=== PATIENT | female | born 1965 | race Caucasian/White ===

== ENCOUNTER 2016-10-17 06:00 | Day surgery (SDC) | payer BC ==
[~2016-10-17] VITALS: Ht 172.7 cm; Wt 120.0 kg
[~2016-10-17 06:00] MED LIST: ACET500T33 PO; ASCO1TAB2 PO; BUPR300T4 PO; CELE200C PO; HYDR-965 PO; MULT1TAB52 PO; SERT50TA PO; SIMV20TA3 PO; VALS1TAB8 PO; WARF1TAB PO; WARF2TAB7 PO; WARF5TAB7 PO; WARF6TAB PO
[2016-10-17] MEDS ORDERED: CEFAZOLIN 2GM PREMIX 50 ML IV ONE (06:46)
[2016-10-17] MEDS ORDERED: ONDANSETRON PF 4 MG/2 ML VIAL. IV PRN (07:00)
[2016-10-17] MEDS ORDERED: HYDROMORPHONE 2 MG/ML VIAL. IV PRN (07:00)
[2016-10-17] MEDS ORDERED: IV RINGERS,LACTATED 1000ML 1,000 ML IV SCH (07:00)
[2016-10-17] MEDS ORDERED: MORPHINE SULFATE 2 MG/ML DISP.SYRIN. IV PRN (07:00)
[2016-10-17] MEDS ORDERED: FENTANYL PF 100 MCG/2 ML VIAL. IV PRN ×2 (07:00)
[2016-10-17] MEDS ORDERED: LIDOCAINE 1% 1 ML SYRINGE. ID PRN (07:00)
[2016-10-17] MEDS ORDERED: PROCHLORPERAZINE 10 MG/2 ML VIAL. IV PRN (07:00)
[2016-10-17] MEDS ORDERED: ONDANSETRON PF 4 MG/2 ML VIAL. ONE (07:01)
[2016-10-17] MEDS ORDERED: DEXAMETHASONE SOD PHOS 20 MG/5 ML VIAL. ONE (07:01)
[2016-10-17] MEDS ORDERED: MIDAZOLAM HCL 2 MG/2 ML VIAL. ONE (07:01)
[2016-10-17] MEDS ORDERED: PROPOFOL 20 ML IV ONE (07:01)
[2016-10-17] MEDS ORDERED: LIDOCAINE 2% 100 MG/5 ML DISP.SYRIN. ONE (07:01)
[2016-10-17] MEDS ORDERED: FENTANYL PF 250 MCG/5 ML VIAL. ONE (07:01)
[2016-10-17] MEDS ORDERED: ROPIVacaine 0.2% PF 10 ML VIAL. ONE (07:09)
[2016-10-17] MEDS ORDERED: ACETAMINOPHEN INTRAVENOUS 100 ML IV ONE (07:26)
[2016-10-17] MEDS ORDERED: CEFAZOLIN 2GM PREMIX 50 ML IV PRN (08:00)
[2016-10-17] MEDS ORDERED: GLYCOPYRROLATE 1 MG/5 ML VIAL. ONE (08:01)
--- NOTE | 2016-10-17 08:53 | DISCH ---
DISCHARGE INSTRUCTIONS Condition on Discharge Condition on Discharge: Stable Activity After Discharge Activity Instructions for Disc: Activity as tolerated Lifting Instructions after Dis: Add. restrict see below (recommend off work until followup, needs leg elevated with sitting duty on return) Exercise Instruction after Dis: Exercise per therapy Weight Bearing Status after Di: As tolerated Diet after Discharge Diet after Discharge: Regular Wound Incision Care Wound/Incision Care: Ice to area for comfort, Keep wound elevated Other wound/incision instructi: remove dressing 2 days may then shower Community/Resources/Services Services at Discharge: PT EVALUATE & TREAT Contacting the DRDiann after DC Call your doctor for: Concerns you may have Follow-Up Follow up with: Amilcar 7-10 days KATERINE PAULSON MD Oct 17, 2016 08:53
[2016-10-17] MEDS ORDERED: HYDR-965 PO (08:54)
--- NOTE | 2016-10-17 08:56 | PDOC ---
BRIEF OPERATIVE NOTE Date: Oct 17, 2016 Pre-Op Diagnosis lateral meniscus tear Post-Op Diagnosis same plus chondromalacia, flap tear Procedure Performed left knee scope, partial lateral menisectomy, chondroplasty Surgeon Amilcar Anesthesia Type: General Blood Loss <5cc Findings above Complications none KATERINE PAULSON MD Oct 17, 2016 08:56
[2016-10-17] MEDS ORDERED: HYDROCODONE/APAP 7.5/325MG TABLET. PO PRN (09:15)
[2016-10-17 10:00] VITALS: BP 138/82
--- NOTE | 2016-10-17 10:43 | OP ---
DATE OF SURGERY: 10/17/2016 PREOPERATIVE DIAGNOSIS: Lateral meniscus tear. POSTOPERATIVE DIAGNOSIS: Lateral meniscus tear plus chondral flap tear, medial femoral condyle and grade 3 chondromalacia patella as well as significant calcified tissue just anterior to the ACL insertion. PROCEDURE: Left knee arthroscopy, partial medial meniscectomy, chondroplasty of the medial femoral condyle and patella and debridement of soft tissue intercondylar notch. SURGEON: Willie Fitzgerald MD. ANESTHESIA: General. ESTIMATED BLOOD LOSS: Less than 5 mL. TOURNIQUET TIME: Approximately 25 minutes at 300 mmHg. COMPLICATIONS: None. OPERATIVE INDICATIONS: The patient is a 51-year-old female with pain, catching, mechanical symptoms very limiting to her activities of daily living and suspicion of a lateral meniscus tear based on her ongoing symptoms. I had gone over with her the risks, benefits, postoperative course of the procedure including the inability to undo any degenerative changes present in the knee that we are going in for mechanical issues only and pain would improve to the extent that those are responsible. All her questions were answered regarding the procedure and she verbalized understanding of the possibility of infection, nerve or blood vessel damage, medical or other anesthetic complications, continued pain among others. DESCRIPTION OF PROCEDURE: The patient was identified, procedure verified, patient placed in the supine position on the operating table. After adequate amounts of general endotracheal anesthesia were administered, the left lower extremity was placed with a thigh tourniquet, prepped and draped in standard sterile fashion and placed in the arthroscopic leg cintron. After timeout was performed, the patient and procedure was identified and verified. The left lower extremity was exsanguinated by Esmarch bandage. Tourniquet inflated to 300 mmHg and a lateral portal was established, medial portal established using spinal needle localization and the knee joint was systematically examined. She was noted to have a chondral flap tear of the medial femoral condyle weightbearing surface, which was debrided back to stable tissue, it was not full thickness in nature. Medial meniscus was probed and found to be intact. ACL was probed and found to be intact. There was a significant collection of tissue that was partially calcified just anterior to the ACL potentially impinging on the intercondylar notch, which was trimmed back to stable tissue and the calcified area removed. ACL, tibial insertion remained intact. Lateral meniscus was noted to have a large tear basically involving the entire substance of the lateral meniscus. There was a small amount of wispy tissue present posteriorly, but very loose in front of the popliteus tendon and that area was debrided as well. Essentially, she had a subtotal partial meniscectomy performed excising the entire posterior horn. The anterior horn of the body was radiused appropriately into the existing intact anterior horn which was preserved, she had full thickness cartilage defect on the weightbearing area of the tibial plateau laterally. No loose bodies were noted. The grade 3 chondromalacia on the undersurface of the patella was debrided back to stable tissue using the arthroscopic shaver as well. No patellofemoral tilt or instability was noted. Click toward the knee again revealed no loose bodies and cartilage fragments were all removed. Knee joint was drained of arthroscopic fluid. Portals closed with nylon suture. She was injected with 20 mL of 0.2% ropivacaine in the fat pad area of portal sites and joint. Sterile dressings were applied. Toes were noted to be warm and pink following deflation of the tourniquet after a total tourniquet time of approximately 25 minutes. She was extubated and transferred to postop holding in stable condition having tolerated the procedure well. WILLIE FITZGERALD MD DR: CLARE/holli JOB#: [id number] / [id number]
[2016-10-17] MEDS ORDERED: SEVOFLURANE 31 TO 60 MINUTES. IH ONE (14:36)
== END 2016-10-17 10:23 | disposition home or self-care (01) ==
LOC: SURG 06:00
PROVIDERS: ATTEND Orthopaedic Surgery
DX: S83.282A Other tear of lateral meniscus, current injury, left knee, initial encounter (principal); I10 Essential (primary) hypertension; E78.00 Pure hypercholesterolemia, unspecified; M19.90 Unspecified osteoarthritis, unspecified site; F32.9 Major depressive disorder, single episode, unspecified; X58.XXXA Exposure to other specified factors, initial encounter; Y93.9 Activity, unspecified; Y92.9 Unspecified place or not applicable; Y99.9 Unspecified external cause status
CPT/HCPCS: 29881; J0131; J0690; J1100; J2405; J2704; J2795; J3010; J3490; J7120; J2250

== ENCOUNTER → 2017-03-19 | Outpatient (CLI) | payer BC ==
[~2017-03-19] MED LIST changes: +DOCU-109 PO; +METH-38 PO; -WARF1TAB PO; +WARF1TAB74 PO; -WARF6TAB PO; +WARF6TAB49 PO
--- NOTE | 2017-03-19 15:08 | EKG ---
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
[2017-03-19 15:28] LABS: BASO # 0.1 x10^3/uL (0.0-0.2); BASO % 1 % (0-3); EOS % 1 % (0-3); HEMATOCRIT 38.6 % (36.0-47.0); HEMOGLOBIN 12.7 g/dL (12.0-15.5); LYMPH # 1.9 x10^3/uL (1.0-4.8); LYMPH % 24 % (24-48); MEAN CORPUSCULAR HEMOGLOBIN 30 pg (25-35); MEAN CORPUSCULAR HGB CONC 33 g/dL (31-37); MEAN CORPUSCULAR VOLUME 92 fL (79-100); MONO % 8 % (0-9); NEUT % 66 % (31-73); PLATELET COUNT 245 x10^3/uL (140-400); RED BLOOD COUNT 4.18 x10^6/uL (3.50-5.40); RED CELL DISTRIBUTION WIDTH 14.4 % (11.5-14.5)
[2017-03-19 16:05] LABS: ALBUMIN 3.7 g/dL (3.4-5.0); ALBUMIN/GLOBULIN RATIO 1.1 (1.0-1.7); CALCIUM 8.6 mg/dL (8.5-10.1); CREATININE 0.9 mg/dL (0.6-1.0); GFR 65.5; POTASSIUM 3.8 mmol/L (3.5-5.1); TOTAL BILIRUBIN 0.3 mg/dL (0.2-1.0); TOTAL PROTEIN 7.2 g/dL (6.4-8.2)
== END | disposition home or self-care (01) ==
LOC: SURGPAT 13:43
PROVIDERS: ATTEND Neurological Surgery
DX: M48.06 Spinal stenosis, lumbar region (principal); M71.30 Other bursal cyst, unspecified site; I10 Essential (primary) hypertension
CPT/HCPCS: 36415; 80053; 85027; 87641; 93005

== ENCOUNTER 2017-03-22 11:25 | Day surgery (SDC) | payer BC ==
[~2017-03-22] VITALS: Ht 172.7 cm; Wt 111.1 kg
[~2017-03-22 11:25] MED LIST changes: +0.9 % SODIUM CHLORIDE 50 ML VIAL. IJ ONE; +BUPIVACAINE-EPI 0.5%-1:200000 50 ML VIAL. ONE; -DOCU-109 PO; +GELATIN SPONGE SIZE 100. ONE; +HYDROmorphone 2 MG/ML VIAL IV PRN; +IV RINGERS,LACTATED 1000ML 1,000 ML IV SCH; +KETOROLAC 60 MG/2 ML INJ FOR OR. ONE; +LIDOCAINE 1% 1 ML SYRINGE. ID PRN; +LIDOCAINE 2% PF Vial for OR 5 ML VIAL. ONE; -METH-38 PO; +MORPHINE SULFATE 2 MG/ML DISP.SYRIN. IV PRN; +ONDANSETRON PF 4 MG/2 ML VIAL. IV PRN; +PHENYLEPHRINE in 0.9% NACL PF 1 MG/10 ML DISP.SYRIN. IV ONE; +PROCHLORPERAZINE 10 MG/2 ML VIAL. IV PRN; +PROPOFOL 20 ML IV ONE; +PROPOFOL 50 ML IV ONE; +REMIFENTANIL 2 MG VIAL. IV ONE; +ROCURONIUM 50 MG/5 ML VIAL. ONE; +SUCCINYLCHOLINE 200 MG/10 ML VIAL. ONE; +THROMBIN TOPICAL 20,000 UNIT SPRAY.SYRN KIT TP ONE; +fentaNYL PF VIAL 100 MCG/2 ML VIAL IV PRN; +fentaNYL PF VIAL 100 MCG/2 ML VIAL ONE
[2017-03-22 12:07] LABS: INR 1.2 (0.8-1.1); PROTHROMBIN TIME PATIENT 14.3 SEC (11.7-14.0)
[2017-03-22] MEDS: BACITRACIN 50,000 UNIT in IV NORMAL SALINE 1000ML BAG 1,000 ML IRR ONE ×2 (12:24→13:54)
[2017-03-22] MEDS ORDERED: MINERAL OIL/PETROLATUM,WHITE OPHTH OINT 3.5GM TUBE. ONE (13:51)
[2017-03-22] MEDS ORDERED: DEXAMETHASONE SOD PHOS 20 MG/5 ML VIAL. ONE (14:08)
[2017-03-22] MEDS ORDERED: DESFLURANE > 120 MINUTES IH ONE (14:08)
[2017-03-22] MEDS ORDERED: ONDANSETRON PF 4 MG/2 ML VIAL. ONE (14:09)
[2017-03-22] MEDS ORDERED: ePHEDrine PF IN SALINE 50 MG/5 ML DISP.SYRIN IV ONE (14:24)
[2017-03-22] MEDS ORDERED: NEOSTIGMINE 10 MG/10 ML VIAL. ONE (14:41)
[2017-03-22] MEDS ORDERED: GLYCOPYRROLATE 1 MG/5 ML VIAL. ONE (14:42)
[2017-03-22] MEDS ORDERED: PROPOFOL 50 ML IV ONE (15:08)
[2017-03-22] MEDS ORDERED: HYDROcodone/APAP 7.5/325MG 1 TAB TABLET PO PRN (17:15)
[2017-03-22] MEDS ORDERED: HYDR-965 PO (17:27)
[2017-03-22] MEDS ORDERED: METH-38 PO (17:28)
[2017-03-22] MEDS ORDERED: DOCU-109 PO (17:29)
[2017-03-22 18:00] VITALS: BP 152/82
--- NOTE | 2017-03-22 22:44 | OP ---
DATE OF SURGERY: 03/22/2017 PREOPERATIVE DIAGNOSIS: Synovial cyst, left L3-L4 with severe left lumbar radiculopathy. POSTOPERATIVE DIAGNOSIS: Synovial cyst, left L3-L4 with severe left lumbar radiculopathy. OPERATION PERFORMED: Hemilaminotomy and ____ exposure with removal of synovial cyst, L3-L4. The operation was done with EMG monitoring, fluoroscopy, microscopic dissection. MELTER LOADER: Janeth Fuentes APRN assisted with the surgery. She assisted with the exposure, the removal of synovial cyst as well as the closure. 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 On imaging studies, she had a number of abnormalities. 1. There was a synovial cyst at L3-L4 with stenosis, especially lateral recess narrowing on the left side. 2. There was lateral recess stenosis at L4-L5 and L5-S1. The feeling was that the symptoms were as a result primarily of the problems at L3-L4 and I recommended operation at just this level. I did discuss with her the remainder of ____ rationale for performing a focused operation, which I felt was the cause of all of her symptoms. She understood the surgery and the risks. She understood the technique of the operation and she wished to go ahead. DESCRIPTION OF PROCEDURE: Following general endotracheal anesthesia, the patient was positioned prone on the Octaviano table. Her lumbar region was prepped and draped in standard fashion. WILMER hose and AV impulse boots were applied for DVT prophylaxis. Microscope was draped. Fluoroscopy was draped and brought into the field. Monitoring was established. Ancef 2 g was given less than 1 hour prior to initiation of the surgery. Using fluoroscopic guidance, a small midline posterior incision was made. I dissected down through the skin and subcutaneous tissue and dissected along the medial aspect of the lumbodorsal fascia. I placed a 105 mm lumbar microdisk retractor and confirmed my positions fluoroscopically. I brought in the high speed air drill and I burred down a generous hemilaminotomy and then worked laterally at the level of the disk through the facet and inferiorly I performed a generous foraminotomy. I could visualize the L4 root and then at the level of the medial portion of the pedicle and superiorly, the nerve was pushed far medially from the large synovial cyst. The cyst extended superiorly and then around the pedicle laterally and so I trimmed away the ligamentum flavum. I followed the cyst laterally and then trimmed all its material away and removed the cyst, which was sent for pathologic evaluation. I did explore carefully. The disk was very firm. At this point, I was able to visualize the dura and the exiting root very well. There had been a dense scarring between both the cyst capsule and the dura as well as the ligamentum flavum and the dura and it did take some time to free this up through the microscope, but this was accomplished gently over time and I was able to get an excellent removal of the majority of the cyst wall, which was not densely scarred to the dura. I did follow ____ to the facet and coagulated the opening. I irrigated copiously with antibiotic solution. I did use bone wax throughout the operation at this point and the nerve root was very free. The region was very well decompressed. I removed the retractor. Hemostasis was excellent in the muscle. I irrigated again copiously, closed the wound in layers with absorbable suture, irrigating frequently. The skin was closed with skin lisa. The operation went very well and the patient was awakened uneventfully. I was quite pleased with the surgery. ANNAMARIE MTZ MD DR: FAN/holli JOB#: [id number] / [id number]
--- NOTE | 2017-03-26 13:35 | PATHOLOGY ---
PATHOLOGY REPORT * * * * * * * * FINAL DIAGNOSIS: A. Segments of fibrocartilaginous, fibroadipose, and skeletal muscle tissue and bone, lumbar decompression. - Degenerative changes of fibrocartilaginous tissue. B. Segments of fibrocartilaginous, fibroadipose, skeletal muscle, and synovial tissue, designated "synovial cyst": - Synovial cyst. COMMENT: There is no evidence of an acute inflammatory process or malignancy. (JPM:pit; 03/26/2017) REPORT ELECTRONICALLY SIGNED BY: Bryson Hernandez M.D. DATE/TIME: 03/26/2017 13:35 * * * * * * * * GROSS PATHOLOGY: A. Received in formalin labeled "Man Irving, lumbar decompression" are multiple segments of byrnes, rubbery, and gritty tissue admixed with bone. The specimen measures 2.0 x 1.8 x 0.7 cm in aggregate dimensions. The tissue is submitted representatively in cassette A1, following decalcification. B. Received in formalin labeled "synovial cyst" are multiple segments of byrnes, rubbery, and gritty tissue admixed with bone. The specimen measures 1.5 x 1.0 x 0.7 cm in aggregate dimensions. The tissue is submitted entirely in cassette B1, following decalcification. (JPM; 03/23/17) INITIAL CPT CODE(S): A; 30192, 85976 B; 21217, 15674 Professional services performed by [facility] [place] [address] Technical services performed by [facility] at [address] [place] [address], [facility] [address], [place] [address]. SPECIMEN(S) RECEIVED: A.Lumbar decompression B.Synovial cyst CLINICAL HISTORY: Lumbar stenosis, synovial cyst PATIENT: MAN IRVING /AGE: 6 1965 (Age: 52) PATIENT #: [id number] ALT CASE #: SPECIMEN COLLECTION DATE: 03/22/2017 SPECIMEN RECEIVED DATE: 03/23/2017 [facility] - [address] [place] [address] - PHONE: [phone] * * * END OF REPORT * * *
== END 2017-03-22 18:17 | disposition home or self-care (01) ==
LOC: SURG 11:25
PROVIDERS: ATTEND Neurological Surgery
DX: M54.16 Radiculopathy, lumbar region (principal); M71.38 Other bursal cyst, other site; M48.06 Spinal stenosis, lumbar region; E78.00 Pure hypercholesterolemia, unspecified; I10 Essential (primary) hypertension; K21.9 Gastro-esophageal reflux disease without esophagitis; M19.90 Unspecified osteoarthritis, unspecified site; F32.9 Major depressive disorder, single episode, unspecified; Z86.69 Personal history of other diseases of the nervous system and sense organs; Z86.718 Personal history of other venous thrombosis and embolism; Z87.39 Personal history of other diseases of the musculoskeletal system and connective tissue; Z88.3 Allergy status to other anti-infective agents
CPT/HCPCS: 36415; 63267; 76000; 85610; 85730; J0330; J1100; J1885; J2001; J2405; J2704; J2710; J3010; J3490; J7030; J7120; J2370

== ENCOUNTER → 2017-12-26 | Outpatient (CLI) | payer BC ==
[2017-12-26] MEDS: GADOBUTROL 10 MMOL/10 ML VIAL IV (15:59)
== END | disposition home or self-care (01) ==
LOC: KCIC MRI 14:57
DX: M51.16 Intervertebral disc disorders with radiculopathy, lumbar region (principal); M48.061 Spinal stenosis, lumbar region without neurogenic claudication; I10 Essential (primary) hypertension; Z79.01 Long term (current) use of anticoagulants
CPT/HCPCS: 72158; A9585

== ENCOUNTER → 2018-11-06 | Outpatient (CLI) | payer BC ==
[~2018-11-06] MED LIST changes: -0.9 % SODIUM CHLORIDE 50 ML VIAL. IJ ONE; -BUPIVACAINE-EPI 0.5%-1:200000 50 ML VIAL. ONE; +DOCU-109 PO; -GELATIN SPONGE SIZE 100. ONE; +HYDR-3165 PO; -HYDR-965 PO; -HYDROmorphone 2 MG/ML VIAL IV PRN; -IV RINGERS,LACTATED 1000ML 1,000 ML IV SCH; -KETOROLAC 60 MG/2 ML INJ FOR OR. ONE; -LIDOCAINE 1% 1 ML SYRINGE. ID PRN; -LIDOCAINE 2% PF Vial for OR 5 ML VIAL. ONE; +METH-38 PO; -MORPHINE SULFATE 2 MG/ML DISP.SYRIN. IV PRN; -ONDANSETRON PF 4 MG/2 ML VIAL. IV PRN; -PHENYLEPHRINE in 0.9% NACL PF 1 MG/10 ML DISP.SYRIN. IV ONE; -PROCHLORPERAZINE 10 MG/2 ML VIAL. IV PRN; -PROPOFOL 20 ML IV ONE; -PROPOFOL 50 ML IV ONE; -REMIFENTANIL 2 MG VIAL. IV ONE; -ROCURONIUM 50 MG/5 ML VIAL. ONE; -SUCCINYLCHOLINE 200 MG/10 ML VIAL. ONE; -THROMBIN TOPICAL 20,000 UNIT SPRAY.SYRN KIT TP ONE; +WARF-31 PO; -WARF2TAB7 PO; +WARF2TAB96 PO; -WARF5TAB7 PO; -fentaNYL PF VIAL 100 MCG/2 ML VIAL IV PRN; -fentaNYL PF VIAL 100 MCG/2 ML VIAL ONE
--- NOTE | 2018-11-06 10:17 | KCIC ---
EXAM: MRI LEFT KNEE DATE: 11/06/2018 9:30 AM CLINICAL INDICATION: Left knee pain, instability. Evaluate for possible arthroplasty. COMPARISON: None. TECHNIQUE: Multiplanar, multisequence MRI of the left knee was performed without contrast. FINDINGS: Small to moderate left knee joint effusion. Small Bah's cyst. Diffuse increased signal within the ACL with likely a few intact fibers seen, suggests mucoid degeneration versus partial tear. PCL is intact. Increased signal about the MCL likely from adjacent osteoarthritis although low-grade sprain may have similar appearance. Fibular collateral ligament, biceps femoris and IT band are intact. Popliteus tendon is normal in signal and morphology, intact. Extensor mechanism is intact. Lateral patellar tracking. Lateral meniscus: The meniscus is absent from the body segment to the posterior root attachment, possibly surgical or from diffuse degeneration/maceration. Anterior horn and body lateral meniscus is also blunted, possibly prior meniscectomy or radial tear. Diffuse chondral effacement of the medial compartment with subchondral edema and sclerosis. Medial meniscus: Oblique increased signal extending to the inferior articular surface is seen on only one image at the body segment, suspicious for tear. Lobulated T2 hyperintense signal within the medial femoral metaphyseal region may represent low-grade cartilaginous lesion such as enchondroma. No evidence for fracture or osteonecrosis. Tricompartmental osteoarthritis with prominent tricompartmental osteophytes, subchondral edema and cystic change lateral femoral condyle with chondral effacement. Within the medial compartment, intermittent chondral fissuring with full-thickness cartilage defects are seen for example (series 8 image 14) and at the posterior most aspect of the medial femoral condyle (series 6 image 20). A 1.3 cm cartilage defect at the inferior pole of the patella with subchondral edema/cystic change. IMPRESSION: 1. Tricompartmental osteoarthritis, most prominent in the lateral compartment with chondral effacement, subchondral edema and cystic change and bulky osteophytes. 2. Absent lateral meniscus at the body segment posterior horn with blunting of the anterior horn and body, possibly prior meniscectomy versus diffuse tear. 3. Medial compartmental osteoarthritis with small associated osteophytes and intermittent chondral fissuring without significant subchondral edema. 4. Oblique increased signal within the body segment of the medial meniscus extends to the inferior articular surface on only one image, suspicious for medial meniscal tear. 5. Diffuse increased signal within the ACL, likely mucoid degeneration although partial tear is not excluded. Electronically signed by: Alex Sanchez MD (11/06/2018 10:14 AM) [id number]
== END | disposition home or self-care (01) ==
LOC: KCIC MRI 08:44
PROVIDERS: ATTEND Orthopaedic Surgery
DX: M17.12 Unilateral primary osteoarthritis, left knee (principal); M25.762 Osteophyte, left knee; Z98.890 Other specified postprocedural states
CPT/HCPCS: 73721

== ENCOUNTER → 2019-04-02 | Outpatient (CLI) | payer BC ==
[~2019-04-02] MED LIST changes: +ENOX40DI SQ; +FLUT9.9S NS; +OMEP20CA10 PO; +OXYC5CAP PO; +TRAM50TA PO
--- NOTE | 2019-04-02 14:19 | EKG ---
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
[2019-04-02 14:43] LABS: BASO # 0.1 x10^3/uL (0.0-0.2); BASO % 1 % (0-3); EOS # 0.1 x10^3/uL (0.0-0.7); EOS % 2 % (0-3); HEMATOCRIT 37.9 % (36.0-47.0); HEMOGLOBIN 12.7 g/dL (12.0-15.5); LYMPH # 1.9 x10^3/uL (1.0-4.8); LYMPH % 27 % (24-48); MEAN CORPUSCULAR HEMOGLOBIN 30 pg (25-35); MEAN CORPUSCULAR HGB CONC 33 g/dL (31-37); MEAN CORPUSCULAR VOLUME 91 fL (79-100); MONO # 0.5 x10^3/uL (0.0-1.1); MONO % 8 % (0-9); NEUT # 4.3 x10^3/uL (1.8-7.7); NEUT % 62 % (31-73); PLATELET COUNT 205 x10^3/uL (140-400); RED BLOOD COUNT 4.16 x10^6/uL (3.50-5.40); WHITE BLOOD COUNT 6.9 x10^3/uL (4.0-11.0)
[2019-04-02 15:06] LABS: ALBUMIN 3.8 g/dL (3.4-5.0); CALCIUM 8.8 mg/dL (8.5-10.1); CREATININE 1.1 mg/dL (0.6-1.0); GFR 51.6; POTASSIUM 3.6 mmol/L (3.5-5.1)
[2019-04-02 15:35] LABS: BILIRUBIN,URINE NEGATIVE (NEG); CLARITY,URINE CLEAR; COLOR,URINE YELLOW; NITRITE,URINE NEGATIVE (NEG); PROTEIN,URINE NEGATIVE (NEG-TRACE)
[2019-04-02 15:44] LABS: SQUAMOUS EPITHELIAL CELL,UR FEW /LPF
[2019-04-02 15:45] LABS: BACTERIA,URINE 0 /HPF (0-FEW); RBC,URINE OCC /HPF (0-2); WBC,URINE 0 /HPF (0-4)
--- NOTE | 2019-04-02 15:50 | RAD ---
AP and Lateral Views of the Chest 04/02/2019 1:58 PM Indication: Preoperative Comparison: None Findings: There is no focal consolidation or infiltrate identified. Heart size appears to be top normal. In. There is no evidence of pneumothorax or pleural effusion. Dextrocurvature of the thoracic spine noted. No acute osseous abnormalities are identified. Impression: No evidence of acute cardiopulmonary process. Electronically signed by: Konrad Monk MD (04/02/2019 3:47 PM) [id number]
== END | disposition home or self-care (01) ==
LOC: SURGPAT 13:50
PROVIDERS: ATTEND Orthopaedic Surgery
DX: Z01.818 Encounter for other preprocedural examination (principal); M17.12 Unilateral primary osteoarthritis, left knee; Z88.1 Allergy status to other antibiotic agents
CPT/HCPCS: 36415; 71046; 80048; 81001; 82040; 82306; 85025; 85610; 85651; 85730; 87641; 93005

== ENCOUNTER 2019-04-08 05:57 | Inpatient (IN) | payer BC ==
[~2019-04-08] VITALS: Ht 172.7 cm; Wt 120.2 kg
[2019-04-08] VITALS (8 sets, daily range): BP systolic 115–147; BP diastolic 63–90
[~2019-04-08 05:57] MED LIST changes: -OXYC5CAP PO; -TRAM50TA PO
[2019-04-08] MEDS ORDERED: TRANEXAMIC ACID 1,000 MG in IV NS 50ML -- 1ST BAG INJ ONE (06:00)
[2019-04-08] MEDS ORDERED: HYDROcodone/APAP 7.5/325MG 1 TAB TABLET PO PRN ×2 (06:00→10:00)
[2019-04-08] MEDS ORDERED: MORPHINE SULFATE 5 MG, KETOROLAC 30MG VIAL 30 MG, ROPIVacaine 0.5% PF 60 ML, EPINEPHrin... INT ART ONE ×5 (06:00)
[2019-04-08] MEDS ORDERED: ONDANSETRON PF 4 MG/2 ML VIAL. IV PRN (07:00)
[2019-04-08] MEDS ORDERED: IV RINGERS,LACTATED 1000ML 1,000 ML IV SCH (07:00)
[2019-04-08] MEDS ORDERED: fentaNYL PF VIAL 100 MCG/2 ML VIAL IV PRN (07:00)
[2019-04-08] MEDS ORDERED: LIDOCAINE 1% PF 2 ML VIAL. ID PRN (07:00)
[2019-04-08] MEDS ORDERED: PROCHLORPERAZINE 10 MG/2 ML VIAL. IV PRN (07:00)
[2019-04-08] MEDS ORDERED: MORPHINE SULFATE 2 MG/ML VIAL. IV PRN ×2 (07:00→10:00)
[2019-04-08] MEDS ORDERED: HYDROmorphone 2 MG/ML VIAL IV PRN (07:00)
[2019-04-08] MEDS ORDERED: DEXAMETHASONE SOD PHOS 4 MG/ML VIAL ONE (07:17)
[2019-04-08] MEDS ORDERED: LIDOCAINE 2% PF 5 ML VIAL. ONE (07:17)
[2019-04-08] MEDS ORDERED: MIDAZOLAM HCL/PF 2 MG/2 ML VIAL. ONE (07:17)
[2019-04-08] MEDS ORDERED: FAMOTIDINE 20 MG/2 ML VIAL ONE (07:17)
[2019-04-08] MEDS ORDERED: ONDANSETRON PF 4 MG/2 ML VIAL. ONE (07:17)
[2019-04-08] MEDS ORDERED: PROPOFOL 20 ML IV ONE (07:17)
[2019-04-08] MEDS ORDERED: diphenhydrAMINE 50 MG/ML VIAL ONE (07:17)
[2019-04-08] MEDS ORDERED: ROCURONIUM 50 MG/5 ML VIAL. ONE (07:17)
[2019-04-08] MEDS ORDERED: fentaNYL PF VIAL 100 MCG/2 ML VIAL ONE ×3 (07:17→11:22)
[2019-04-08] MEDS ORDERED: SUCCINYLCHOLINE 200 MG/10 ML VIAL. ONE (07:19)
[2019-04-08] MEDS ORDERED: TRANEXAMIC ACID 1,000 MG in IV NS 50ML -- 2ND BAG INJ ONE (08:00)
--- NOTE | 2019-04-08 08:07 | HP ---
ADMIT DATE: 04/08/2019 CHIEF COMPLAINT: Left knee pain and degenerative joint disease. HISTORY OF PRESENT ILLNESS: The patient is familiar to me for longstanding nonoperative treatment of left knee pain including asset protection professional bracing, extensive injections including corticosteroid and viscosupplementation, neither of which had been adequate recently. 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 She is also of note limited by right ankle degenerative issue that is further limiting her activity and causing more compensatory pain for the knee in her opinion. PAST MEDICAL HISTORY: DVT with pulmonary embolism, sleep apnea, hypertension, hyperlipidemia, depression and a history of empyema. PAST SURGICAL HISTORY: Thoracotomy, multiple chest tubes, left knee arthroscopy, uterine polyps and ablation and a ventral hernia repair. FAMILY HISTORY: She notes no family history. SOCIAL HISTORY: Denies smoking, alcohol or drug use. MEDICATIONS: List is reviewed and no list is documented. Of note, she normally takes warfarin 6 mg daily, but is currently on a Lovenox bridge preoperatively. ALLERGIES: LISTS ALLERGIES TO ERYTHROMYCIN. REVIEW OF SYSTEMS: Denies any chest pain, shortness of breath, recent febrile illness, change in bowel or bladder habits or focal weakness, numbness and tingling. Significant mainly for the left knee and right ankle pain and degenerative conditions. PHYSICAL EXAMINATION: GENERAL: On admission is a healthy, pleasant, cooperative 54-year-old female, alert and oriented, no acute distress. VITAL SIGNS: Per admission sheet. HEENT: Atraumatic, normocephalic. HEART: Regular rate and rhythm. LUNGS: Clear to auscultation bilaterally. ABDOMEN: Benign. EXTREMITIES: Examination of the left knee reveals significant patellofemoral crepitus. No gross ligament instability, but she does have slight valgus and lateral more so than medial joint line tenderness. Just intact endpoint to Stu, but slight laxity on anterior drawer and some patellofemoral crepitus on the contralateral knee. Minimal joint line tenderness on the right. Normal alignment, stability of bilateral hips. The right ankle has pain on extremes of range of motion, but minimal limitations on her motion and some pes planus, worse on the right than on the left and an otherwise normal examination of the contralateral left ankle. She has intact motor function, distal pulses, sensation, reflexes, skin in both lower extremities throughout. IMPRESSION: Left knee pain and degenerative change, right ankle instability. TREATMENT PLAN: We had previously discussed in detail surgical options for her knee based on her tricompartmental involvement and a partial ACL injury with mild laxity. She is not a candidate for any type of unicompartmental procedure and we did talk through risks, benefits, postoperative course of total knee arthroplasty including possibilities of infection, nerve or blood vessel damage, premature wear or loosening, medical or other anesthetic complications among others. She agrees to proceed and had requested a medial congruent arthroplasty component, which we are going to proceed with. She is [facility] for [facility] to follow. KATERINE PAULSON MD DR: CLARE/nts JOB#: [id number] / [id number]
[2019-04-08 08:22] LABS: PROTHROMBIN TIME PATIENT 12.8 SEC (11.7-14.0)
[2019-04-08] MEDS ORDERED: hydrALAZINE 20 MG/ML VIAL. ONE (08:23)
[2019-04-08] MEDS ORDERED: 0.9 % SODIUM CHLORIDE 20 ML VIAL. IJ ONE (08:24)
[2019-04-08] MEDS ORDERED: KETAMINE HCL IN NACL, ISO-OSM 50 MG/5 ML SYRINGE ONE (08:55)
[2019-04-08] MEDS ORDERED: NEOSTIGMINE METHYLSULFATE 5 MG/5 ML SYRINGE. ONE (08:56)
[2019-04-08] MEDS ORDERED: GLYCOPYRROLATE 1 MG/5 ML VIAL. ONE (08:56)
[2019-04-08] MEDS ORDERED: SEVOFLURANE > 120 MINUTES. IH ONE (09:33)
[2019-04-08] MEDS ORDERED: IV DEXTROSE 5% 250 ML BAG. IV PRN (10:00)
[2019-04-08] MEDS ORDERED: CALCIUM CARBONATE 500 MG TAB.CHEW PO PRN (10:00)
[2019-04-08] MEDS ORDERED: PROCHLORPERAZINE 5 MG TABLET. PO PRN (10:00)
[2019-04-08] MEDS ORDERED: ZOLPIDEM 5 MG TABLET. PO PRN (10:00)
[2019-04-08] MEDS ORDERED: diphenhydrAMINE 50 MG/ML VIAL IV PRN (10:00)
[2019-04-08] MEDS ORDERED: 0.9 % SODIUM CHLORIDE 10 ML DISP.SYRIN. IV PRN (10:00)
[2019-04-08] MEDS ORDERED: DEXTROSE 50% 25 GM / 50ML DISP.SYRIN. IV PRN (10:00)
[2019-04-08] MEDS: fentaNYL PF VIAL 100 MCG/2 ML VIAL IV PRN ×4 (10:26→20:57)
--- NOTE | 2019-04-08 10:59 | RAD ---
KNEE LEFT 2V Clinical Indication: Postop. Comparison: None. Findings: AP and crosstable lateral views. There has been total knee arthroplasty. The alignment appears anatomic. There has been resurfacing of the patella. No periprosthesis fracture is identified. Surgical drain is in place. There is scattered subcutaneous air. IMPRESSION: Post total knee arthroplasty, no acute complication radiographically. Electronically signed by: Lanre Wolff MD (04/08/2019 10:57 AM) [id number]
[2019-04-08] MEDS: ONDANSETRON PF 4 MG/2 ML VIAL. IV SCH ×3 (12:00→23:55)
[2019-04-08] MEDS: IV NORMAL SALINE 1000ML BAG 1,000 ML IV SCH (12:00)
[2019-04-08] MEDS: ONDANSETRON ODT 4 MG TAB.RAPDIS. PO SCH ×3 (12:00→23:55)
--- NOTE | 2019-04-08 12:23 | NUR ---
Patient arrived to the floor from PACU around 1138 in a bed. She had a SCD on her RLE with no WILMER hose, and then nothing on her right. She is on 2L oxygen per NC with O2 sats around 97%. She is alert and oriented, rating her pain in her LTK around 4-6 with PRN medication asked for. IV in left wrist infusing appropriately without complications. She has her own walker at bedside. Family at bedside. Pulse +2 and equal in all extremities. Will continue to monitor.
[2019-04-08] MEDS: oxyCODONE IR 5 MG TABLET PO PRN ×2 (15:09→19:58)
[2019-04-08] MEDS ORDERED: WARFARIN 7.5 MG TABLET. PO ONE (16:00)
[2019-04-08] MEDS: FERROUS SULFATE 325 MG TABLET. PO SCH (16:00)
[2019-04-08] MEDS ORDERED: WARFARIN 3 MG TABLET. PO SCH (16:00)
[2019-04-08] MEDS: KETOROLAC 30MG VIAL 30 MG, BUPIVACAINE MPF 0.25% 20 ML, EPINEPHrine 0.5 MG in TOTAL VOL... INT ART SCH (17:16)
[2019-04-08] MEDS: ENOXAPARIN 40 MG/0.4 ML SYRINGE. SQ SCH (20:52)
[2019-04-08] MEDS: DOCUSATE SODIUM 100 MG CAPSULE. PO SCH (20:52)
[2019-04-08] MEDS: SIMVASTATIN 20 MG TABLET PO SCH (20:52)
[2019-04-09] MEDS: oxyCODONE IR 5 MG TABLET PO PRN ×6 (00:08→20:42)
[2019-04-09 02:37] VITALS: BP 107/64
[2019-04-09] MEDS: ONDANSETRON ODT 4 MG TAB.RAPDIS. PO SCH (05:41)
[2019-04-09] MEDS: GABAPENTIN 100 MG CAPSULE. PO SCH ×3 (05:42→20:41)
[2019-04-09] MEDS: traMADol 50 MG TABLET PO SCH ×3 (05:42→16:55)
[2019-04-09] MEDS: KETOROLAC 30MG VIAL 30 MG, BUPIVACAINE MPF 0.25% 20 ML, EPINEPHrine 0.5 MG in TOTAL VOL... INT ART SCH (05:54)
[2019-04-09] MEDS ORDERED: MAGNESIUM HYDROXIDE 2,400 MG/30 ML ORAL.SUSP. PO PRN (06:00)
[2019-04-09] MEDS: ONDANSETRON PF 4 MG/2 ML VIAL. IV SCH (06:00)
[2019-04-09 06:03] VITALS: BP 119/61
--- NOTE | 2019-04-09 06:38 | NUR ---
Patient states she was awakened q2h throughout the noc. Slept w/ Cpap on. Ambulating w/o difficulty.
[2019-04-09] MEDS: PANTOPRAZOLE 40 MG TABLET.DR. PO SCH (07:23)
[2019-04-09] MEDS: buPROPion XL 150 MG TAB.ER.24H. PO SCH (08:10)
[2019-04-09] MEDS: DOCUSATE SODIUM 100 MG CAPSULE. PO SCH ×2 (08:11→20:42)
[2019-04-09] MEDS: MULTIVITAMIN with MINERAL TABLET. PO SCH (08:11)
[2019-04-09] MEDS: SERTRALINE 50 MG TABLET. PO SCH (08:11)
[2019-04-09] MEDS: ACETAMINOPHEN 500 MG TABLET PO SCH ×3 (08:12→20:41)
[2019-04-09] MEDS: FERROUS SULFATE 325 MG TABLET. PO SCH ×2 (08:12→16:55)
[2019-04-09] MEDS: SENNOSIDES/DOCUSATE 8.6/50MG TABLET. PO SCH (08:12)
[2019-04-09] MEDS: ENOXAPARIN 40 MG/0.4 ML SYRINGE. SQ SCH ×2 (08:16→20:41)
[2019-04-09] MEDS: LOSARTAN POTASSIUM 50 MG TABLET. PO SCH (08:17)
[2019-04-09] MEDS: hydroCHLOROthiazide 12.5 MG CAPSULE PO SCH (08:17)
[2019-04-09 08:32] LABS: HEMATOCRIT 31.5 % (36.0-47.0); HEMOGLOBIN 10.6 g/dL (12.0-15.5); RED BLOOD COUNT 3.43 x10^6/uL (3.50-5.40); RED CELL DISTRIBUTION WIDTH 13.9 % (11.5-14.5)
[2019-04-09 08:39] LABS: PROTHROMBIN TIME PATIENT 13.3 SEC (11.7-14.0)
[2019-04-09] MEDS ORDERED: FLUTICASONE 50MCG/NASAL SPRAY 16GM BOTTLE. NS SCH (09:00)
--- NOTE | 2019-04-09 10:04 | PDOC4 ---
Operative Note Operative Note Date of surgery: 04/08/2019 Preoperative diagnosis: Left knee degenerative joint disease Postoperative diagnosis: Same Operative procedure: Left total knee arthroplasty Surgeon: Amilcar Assist: Arabella Anesthesia: Gen. Estimated blood loss: 75 mL Consultations: None Specimens: Cartilage surfaces to pathology Drains: Intra-articular catheter and Hemovac drain Operative indications: Please see my preoperative history and physical for detailed operative indications and note that Kateryna has undergone extensive nonoperative management for degenerative joint disease of her left knee including injections which have been inadequately effective recently she is severely affected in her activities of daily living as well as by an ongoing right ankle issue causing additional limitation. We had previously gone over risks benefits postoperative course of total knee arthroplasty including the possibility of infection nerve or blood vessel damage continued pain premature wear or loosening medical or other anesthetic complications among others she agrees to proceed with surgical evaluation and treatment having given informed consent Operative text: Patient was identified procedure verified patient placed in the supine position on the operating table. After adequate amounts of general endotracheal anesthesia were administered the left lower extremity was prepped and draped in standard sterile fashion with a thigh tourniquet. After timeout was performed patient procedure identified and verified the left or extremity was exsanguinated by Esmarch bandage tourniquet inflated to 350 mmHg a midline incision was made with a medial parapatellar approach patella was everted fat pad was excised the femur was drilled to accept an intramedullary guide which was set at 5� alignment of the distal cut and an additional 2 mm was cut due to her flexion contracture. Sizing then revealed a size 8 and the distal cutting guide used to proceed with anterior posterior and chamfer cuts. The external tibial jig was then employed and a tibial cut was made and alignment with the second metatarsal and excellent flexion and extension ligament balance was noted with an 11 mm spacer. Posterior cruciate ligament was retained and a size E tib ial component was pinned in place with a standard size 8 femoral component which was noted to have good coverage and sizing full range of motion excellent ligament balance was noted patella was prepared using a size 32 trial component which was medialized and lateral bone removed to prevent impingement excellent tracking was noted. The tibia was then drilled and broached femoral lug holes were drilled trial components were removed thorough irrigation carried out normal saline solution bleeding points controlled by electrocautery and the following Yeimi persona components were cemented in place with polymethylmethacrylate cement a size E tibial component a size 8 femoral component with a size 11 trial medial congruent spacer placed and a size 32 mm vitamin E patella was likewise cemented. Excess cement was removed after cement was dry the trial spacer was removed and a size 11 mm thickness medial congruent vitamin E insert was locked into place additional thorough irrigation carried out normal saline solution Hemovac drain and pain catheter were placed retinaculum was closed with interrupted #2 Ethibond suture and reinforced with #1 PDS strata fix in a running fashion subcutaneous Vicryl suture and a subcuticular 30 strata fix Monocryl were used first and skin closure with a sanket drain and Acticoat. Arabella berry was present for the procedure and assisted in the prepping draping retracting positioning and skin closure KATERINE PAULSON MD Apr 09, 2019 10:04
--- NOTE | 2019-04-09 10:22 | PDOC ---
PROGRESS NOTES Subjective Subjective Problems overnight: Knee soreness as expected but has good motion pain reasonably controlled with no other complaints Objective Vital Signs Vital Signs Date Time Temp Pulse Resp B/P (MAP) Pulse Ox O2 Delivery O2 Flow Rate FiO2 04/09/19 09:34 Room Air 04/09/19 08:22 74 120/65 04/09/19 06:03 98.7 18 95 98.7 04/08/19 12:58 2.0 Physical Exam Dressings clean dry intact pain catheter and Hemovac drain intact distal neurovascular status intact good early range of motion Labs Laboratory Tests Test 04/08/19 06:40 04/09/19 07:53 04/09/19 07:55 Prothrombin Time 12.8 SEC (11.7-14.0) 13.3 SEC (11.7-14.0) Prothromb Time International Ratio 1.0 (0.8-1.1) 1.0 (0.8-1.1) Activated Partial Thromboplast Time 24 SEC (24-38) White Blood Count 10.0 x10^3/uL (4.0-11.0) Red Blood Count 3.43 x10^6/uL (3.50-5.40) Hemoglobin 10.6 g/dL (12.0-15.5) Hematocrit 31.5 % (36.0-47.0) Mean Corpuscular Volume 92 fL (79-100) Mean Corpuscular Hemoglobin 31 pg (25-35) Mean Corpuscular Hemoglobin Concent 34 g/dL (31-37) Red Cell Distribution Width 13.9 % (11.5-14.5) Platelet Count 192 x10^3/uL (140-400) Laboratory Tests Test 04/09/19 07:53 04/09/19 07:55 Prothrombin Time 13.3 SEC (11.7-14.0) Prothromb Time International Ratio 1.0 (0.8-1.1) White Blood Count 10.0 x10^3/uL (4.0-11.0) Red Blood Count 3.43 x10^6/uL (3.50-5.40) Hemoglobin 10.6 g/dL (12.0-15.5) Hematocrit 31.5 % (36.0-47.0) Mean Corpuscular Volume 92 fL (79-100) Mean Corpuscular Hemoglobin 31 pg (25-35) Mean Corpuscular Hemoglobin Concent 34 g/dL (31-37) Red Cell Distribution Width 13.9 % (11.5-14.5) Platelet Count 192 x10^3/uL (140-400) Imaging Postop x-rays show excellent alignment of total knee arthroplasty Assessment Assessment POD# [1], S/P [left total knee arthroplasty] Plan Plan of Care She will continue standard total knee protocol postoperatively Lovenox continued until Coumadin is therapeutic as she was on Coumadin chronically for previous history of DVT and pulmonary embolism KATERINE PAULSON MD Apr 09, 2019 10:22
[2019-04-09] MEDS ORDERED: FLUTICASONE 50MCG/NASAL SPRAY 16GM BOTTLE. NS PRN (11:15)
[2019-04-09] MEDS: IV NORMAL SALINE 1000ML BAG 1,000 ML IV SCH (11:16)
[2019-04-09] MEDS ORDERED: ONDANSETRON ODT 4 MG TAB.RAPDIS. PO PRN (12:00)
[2019-04-09] MEDS ORDERED: ONDANSETRON PF 4 MG/2 ML VIAL. IV PRN (12:00)
--- NOTE | 2019-04-09 12:54 | NUR ---
Pharmacy Warfarin Dosing Note S:Pharmacy consulted to assist with anticoagulation therapy started with target INR: 2 -3 O:MAN IRVING is a 54 year old F with DVT/PE LABS: Last INR: 1.0 Last HGB: 10.6 Last HCT: 31.5 Last PLT: 192 Last dose of 6 mg given on 04/08/19 at Previous Regimen: Vitamin K given: Drug Interaction Changes: Ongoing Drug Interactions: A:INR of 1.0 is below desired range. Target range for this patient is: 2 -3 P: Warfarin dose: 7.5 mg Today at [address] Therapy: Enoxaparin 40 mg q12h Next INR due IN AM Pharmacy anticoagulation service will continue to follow. ERNIE CHRISTENSEN, [facility], 04/09/19 [id number]
[2019-04-09] MEDS ORDERED: BISACODYL 10 MG SUPP.RECT. PR PRN (16:00)
[2019-04-09] MEDS ORDERED: WARFARIN 7.5 MG TABLET. PO ONE (16:00)
[2019-04-09 17:51] VITALS: BP 134/73
[2019-04-09] MEDS: SIMVASTATIN 20 MG TABLET PO SCH (20:42)
[2019-04-10] MEDS: traMADol 50 MG TABLET PO SCH ×4 (00:10→17:54)
[2019-04-10] MEDS: ACETAMINOPHEN 500 MG TABLET PO SCH ×4 (03:00→21:23)
[2019-04-10 06:00] VITALS: BP 115/66
[2019-04-10] MEDS: GABAPENTIN 100 MG CAPSULE. PO SCH ×3 (06:01→21:23)
[2019-04-10] MEDS: PANTOPRAZOLE 40 MG TABLET.DR. PO SCH (06:01)
--- NOTE | 2019-04-10 06:38 | NUR ---
Slept well. C/o constipation. VSS.
[2019-04-10 06:41] LABS: HEMATOCRIT 29.4 % (36.0-47.0); HEMOGLOBIN 9.9 g/dL (12.0-15.5)
[2019-04-10 07:00] LABS: PROTHROMBIN TIME PATIENT 13.8 SEC (11.7-14.0)
[2019-04-10] MEDS: SENNOSIDES/DOCUSATE 8.6/50MG TABLET. PO SCH (08:23)
[2019-04-10] MEDS: hydroCHLOROthiazide 12.5 MG CAPSULE PO SCH (08:23)
[2019-04-10] MEDS: DOCUSATE SODIUM 100 MG CAPSULE. PO SCH ×2 (08:23→21:23)
[2019-04-10] MEDS: SERTRALINE 50 MG TABLET. PO SCH (08:23)
[2019-04-10] MEDS: MULTIVITAMIN with MINERAL TABLET. PO SCH (08:23)
[2019-04-10] MEDS: FERROUS SULFATE 325 MG TABLET. PO SCH ×2 (08:23→16:55)
[2019-04-10] MEDS: buPROPion XL 150 MG TAB.ER.24H. PO SCH (08:24)
[2019-04-10] MEDS: ENOXAPARIN 40 MG/0.4 ML SYRINGE. SQ SCH ×2 (08:28→21:22)
[2019-04-10] MEDS: LOSARTAN POTASSIUM 50 MG TABLET. PO SCH (08:33)
[2019-04-10 09:00] VITALS: BP 139/58
--- NOTE | 2019-04-10 09:27 | NUR ---
Pharmacy Warfarin Dosing Note S:Pharmacy consulted to assist with anticoagulation therapy started with target INR: 2 -3 O:MAN IRVING is a 54 year old F with DVT/PE LABS: Last INR: 1.1 Last HGB: 9.9 Last HCT: 29.4 Last PLT: 192 Last dose of 6 mg given on 04/09/19 at Previous Regimen: Vitamin K given: Drug Interaction Changes: Ongoing Drug Interactions: A:INR of 1.1 is below desired range. Target range for this patient is: 2 -3 P: Warfarin dose: 6 mg Today at [address] Therapy: Enoxaparin 40 mg q12h Next INR due TOMORROW Pharmacy anticoagulation service will continue to follow. DEVEN NG [facility], 04/10/19 [id number]
[2019-04-10] MEDS: oxyCODONE IR 5 MG TABLET PO PRN ×3 (09:36→13:12)
--- NOTE | 2019-04-10 10:34 | NUR ---
du is slightly less painful. she had sensation, motion uzma lower extremities. Hemovac drain site had moderate amount of serosanguineous drainage. cleansed with chlor prep then aquacel foam applied.
[2019-04-10] MEDS ORDERED: POLYETHYLENE GLYCOL 3350 17 GM PACKET. PO PRN (12:00)
--- NOTE | 2019-04-10 12:59 | PDOC ---
PROGRESS NOTES Subjective Subjective Problems overnight: Knee is sore as expected some moderate swelling getting around well with physical therapy and pleased with motion Objective Vital Signs Vital Signs Date Time Temp Pulse Resp B/P (MAP) Pulse Ox O2 Delivery O2 Flow Rate FiO2 04/10/19 08:33 85 139/59 04/10/19 08:00 Room Air 04/10/19 06:05 20 04/10/19 06:00 98.5 92 98.5 04/08/19 12:58 2.0 Physical Exam Atif dressing only has a slight spot of drainage no surrounding redness or erythema a bit of drainage from her Hemovac site moderate swelling distal neurovascular status intact and good early range of motion Labs Laboratory Tests Test 04/09/19 07:53 04/09/19 07:55 04/10/19 06:20 Prothrombin Time 13.3 SEC (11.7-14.0) 13.8 SEC (11.7-14.0) Prothromb Time International Ratio 1.0 (0.8-1.1) 1.1 (0.8-1.1) White Blood Count 10.0 x10^3/uL (4.0-11.0) Red Blood Count 3.43 x10^6/uL (3.50-5.40) Hemoglobin 10.6 g/dL (12.0-15.5) 9.9 g/dL (12.0-15.5) Hematocrit 31.5 % (36.0-47.0) 29.4 % (36.0-47.0) Mean Corpuscular Volume 92 fL (79-100) Mean Corpuscular Hemoglobin 31 pg (25-35) Mean Corpuscular Hemoglobin Concent 34 g/dL (31-37) 34 g/dL (31-37) Red Cell Distribution Width 13.9 % (11.5-14.5) Platelet Count 192 x10^3/uL (140-400) Laboratory Tests Test 04/10/19 06:20 Hemoglobin 9.9 g/dL (12.0-15.5) Hematocrit 29.4 % (36.0-47.0) Mean Corpuscular Hemoglobin Concent 34 g/dL (31-37) Prothrombin Time 13.8 SEC (11.7-14.0) Prothromb Time International Ratio 1.1 (0.8-1.1) Assessment Assessment POD# [2], S/P [left total knee arthroplasty] Plan Plan of Care Continue Lovenox since INR not therapeutic, planned home dose of 6 mg Coumadin today Getting around well with physical therapy continue protocol and likely expected outpatient physical therapy on discharge KATERINE PAULSON MD Apr 10, 2019 12:59
[2019-04-10] MEDS ORDERED: WARFARIN 3 MG TABLET. PO ONE (16:00)
--- NOTE | 2019-04-10 17:07 | PATHOLOGY ---
[facility] Accession Number: [id number] . 01 Material submitted: . knee - LEFT KNEE BONE. Modifiers: left . 01 Clinical history: . Degenerative arthritis of left knee . 02 Diagnosis: Segments of bone and soft tissue, left total knee arthroplasty. - Advanced degenerative arthritis. - Mild nonspecific papillary chronic synovitis. ([facility] 04/10/2019) QTP/04/10/2019 . 02 Electronically signed: . Bryson Hernandez MD, Pathologist NPI- [id number] . 01 Gross description: . Received in formalin labeled "Kateryna Sotelo, left knee bone ", are multiple segments of bone including apparent tibia plateau, patella, meniscus and yellow lobulated and fibrous soft tissues measuring 14 x 11.0 x 1.5 cm in aggregate. Several bone segments are partially covered by pitted byrnes and granular articular cartilage with areas of eburnation. Osteophyte are present and possible villous synovial tissue is identified. Representatively submitted in A1 after decalcification. ([facility]; 04/08/2019) [facility] . 02 Pathologist provided ICD-10: M17.12, M65.862 . 02 CPT . 249219, 116299 Specimen Comment: A courtesy copy of this report has been sent to Specimen Comment: [phone], . Specimen Comment: Report sent to / DR ADNRADE Performed at: 01 [facility] [address], [place] [id number] MD Wallace Villa MD Phone: [phone] Performed at: 02 [facility] [address] [place], [place] [id number] MD Bryson Hernandez MD Phone: [phone]
[2019-04-10 17:45] VITALS: BP 146/71
[2019-04-10] MEDS: SIMVASTATIN 20 MG TABLET PO SCH (21:23)
[2019-04-11] MEDS: traMADol 50 MG TABLET PO SCH ×3 (00:30→12:09)
[2019-04-11] MEDS: ACETAMINOPHEN 500 MG TABLET PO SCH ×2 (03:00→08:11)
[2019-04-11] MEDS: GABAPENTIN 100 MG CAPSULE. PO SCH ×2 (06:11→14:53)
[2019-04-11] MEDS: PANTOPRAZOLE 40 MG TABLET.DR. PO SCH (06:11)
[2019-04-11 06:27] VITALS: BP 136/79
[2019-04-11] MEDS: buPROPion XL 150 MG TAB.ER.24H. PO SCH (08:10)
[2019-04-11] MEDS: FERROUS SULFATE 325 MG TABLET. PO SCH (08:10)
[2019-04-11] MEDS: MULTIVITAMIN with MINERAL TABLET. PO SCH (08:10)
[2019-04-11] MEDS: SERTRALINE 50 MG TABLET. PO SCH (08:11)
[2019-04-11] MEDS: SENNOSIDES/DOCUSATE 8.6/50MG TABLET. PO SCH (08:11)
[2019-04-11 08:14] LABS: HEMATOCRIT 28.8 % (36.0-47.0); HEMOGLOBIN 9.7 g/dL (12.0-15.5)
[2019-04-11] MEDS: hydroCHLOROthiazide 12.5 MG CAPSULE PO SCH (08:15)
[2019-04-11] MEDS: LOSARTAN POTASSIUM 50 MG TABLET. PO SCH (08:16)
[2019-04-11] MEDS: ENOXAPARIN 40 MG/0.4 ML SYRINGE. SQ SCH (08:19)
[2019-04-11] MEDS: DOCUSATE SODIUM 100 MG CAPSULE. PO SCH (08:21)
[2019-04-11 08:22] LABS: PROTHROMBIN TIME PATIENT 13.2 SEC (11.7-14.0)
--- NOTE | 2019-04-11 09:40 | NUR ---
Ambulating in hallways with walker. No c/o at this time.
[2019-04-11] MEDS: oxyCODONE IR 5 MG TABLET PO PRN ×2 (09:48→13:16)
--- NOTE | 2019-04-11 12:55 | NUR ---
Pharmacy Warfarin Dosing Note S:Pharmacy consulted to assist with anticoagulation therapy started with target INR: 2 -3 O:MAN IRVING is a 54 year old F with DVT/PE LABS: Last INR: 1.0 Last HGB: 9.9 Last HCT: 29.4 Last PLT: 192 Last dose of 6 mg given on 04/10/19 at Previous Regimen: Vitamin K given: Drug Interaction Changes: Ongoing Drug Interactions: A:INR of 1.0 is below desired range. Target range for this patient is: 2 -3 P: Warfarin dose: 7.5 mg Today at [address] Therapy: Enoxaparin 40 mg q12h X 3 MORE DAYS Next INR due SUNDAY OR SUNDAY NEXT WEEK. To be followed by primary care physcian. DEVEN NG [facility], 04/11/19 [id number]
[2019-04-11 13:46] VITALS: BP 136/80
[2019-04-11] MEDS ORDERED: TRAM50TA PO (13:55)
[2019-04-11] MEDS ORDERED: OXYC5CAP PO (13:55)
[2019-04-11] MEDS ORDERED: ENOX40DI SQ (13:55)
--- NOTE | 2019-04-11 13:56 | DISCH ---
DISCHARGE INSTRUCTIONS Condition on Discharge Condition on Discharge: Stable Activity After Discharge Activity Instructions for Disc: Activity as tolerated Lifting Instructions after Dis: Add. restrict see below Exercise Instruction after Dis: Exercise per therapy Weight Bearing Status after Di: As tolerated Diet after Discharge Diet after Discharge: Regular Wound Incision Care Wound/Incision Care: Ice to area for comfort, Keep wound elevated, Do not change dressing (maintain sanket dressing report if drainage to the edge redness or other concerns) Community/Resources/Services Services at Discharge: PT EVALUATE & TREAT (weightbearing as tolerated standard total knee protocol, may implement flexionator as necessary) Contacting the DRDiann after DC Call your doctor for: Concerns you may have Follow-Up Follow up with: Dr. Fitzgerald 2 weeks postop Treatment/Equipment after DC Adaptive Equipment Issued: KATERINE Brunson MD Apr 11, 2019 13:56
[2019-04-11] MEDS ORDERED: WARFARIN 7.5 MG TABLET. PO ONE (14:00)
--- NOTE | 2019-04-11 15:00 | NUR ---
Upon changing pink foam dressings form old drain site and skin tear outer aspect of knee. Noted dime size blister below the skin tear. [place] foam dressing applied over the skin tear/blister and placed another at drain site. Gave extra dressing to take home.
--- NOTE | 2019-04-11 15:40 | NUR ---
Discharge instructions given with prescriptions. Answered questions and concerns. Verbalized understanding. Discharged home accompanied by friend.
== END 2019-04-11 15:40 | disposition home or self-care (01) | DRG 470 ==
LOC: OPSVCIP 05:57 → 4 SOUTHEST 11:38
PROVIDERS: ADMIT Orthopaedic Surgery; ATTEND Orthopaedic Surgery
PROC: 5A09357 Assistance with Respiratory Ventilation, Less than 24 Consecutive Hours, Continuous Positive Airway Pressure (ICD-10-PCS; 2019-04-08)
PROC: 0SRD0J9 Replacement of Left Knee Joint with Synthetic Substitute, Cemented, Open Approach (ICD-10-PCS; principal; 2019-04-08 07:30)
PROC: 5A09357 Assistance with Respiratory Ventilation, Less than 24 Consecutive Hours, Continuous Positive Airway Pressure (ICD-10-PCS; 2019-04-09)
PROC: 5A09357 Assistance with Respiratory Ventilation, Less than 24 Consecutive Hours, Continuous Positive Airway Pressure (ICD-10-PCS; 2019-04-10)
PROC: 5A09357 Assistance with Respiratory Ventilation, Less than 24 Consecutive Hours, Continuous Positive Airway Pressure (ICD-10-PCS; 2019-04-11)
DX: M17.12 Unilateral primary osteoarthritis, left knee (principal); I10 Essential (primary) hypertension; E78.5 Hyperlipidemia, unspecified; G47.30 Sleep apnea, unspecified; F32.9 Major depressive disorder, single episode, unspecified; M25.371 Other instability, right ankle; Z88.1 Allergy status to other antibiotic agents; Z86.711 Personal history of pulmonary embolism; Z86.718 Personal history of other venous thrombosis and embolism
CPT/HCPCS: 36415; 73560; 85014; 85018; 85027; 85610; 85730; 86850; 86900; 86901; 88305; 88311; A7015; C1713; J0171; J0330; J0360; J0696; J1100; J1200; J1650; J1885; J2001; J2250; J2270; J2405; J2704; J2710; J2795; J3010; J3490; J7030; J7120; Q0162; 97116; 97150; 97530; 97535; C1769; G0378